=== PATIENT | female | born 1955 | race Caucasian/White ===

== ENCOUNTER 2017-03-04 15:17 | Emergency (ER) | payer OTHER ==
--- NOTE | ~2017-03-04 | CR210 ---
[facility] A Service of [facility] RADIOLOGY TEXT RESULTS PATIENT: WEST SAAVEDRA LOCATION: [place] : 59 UNIT #: [id number] AGE: [address]: Nory Botello SEX: F ORDER DR: [id number] [facility] [address] [place], [place] [address] [id number] E MR#: [id number] Acc #: [id number] NAME: WEST SAAVEDRA : 1955 SEX: F STUDY DATE/TIME: 03/04/2017 16:50 UNIT: CFTX ROOM: STUDY DESCRIPTION: CR Ribs Uni 2 View W PA Ch Lt Attending Physician: Nory Botello P.A.-C. Ordering Physician: Nory Botello P.A.-C. Primary Care Physician: Rhina Esparza M.D. MEDICAL IMAGING REPORT This report is preliminary unless electronic signature is present EXAM Chest and left rib series, 03/04/2017. HISTORY 62-year-old female in the ED complaining of left rib and left hip pain after injury. She was thrown from a horse today. TECHNIQUE AP upright chest x-ray with three-view left rib series. FINDINGS No acute rib fracture is visible. Shallow lung expansion. No visible pneumothorax, pulmonary infiltrate, or pleural effusion. Mild cardiomegaly. IMPRESSION 1. No visible left rib fracture. 2. No active disease in the chest. No visible pneumothorax or pleural effusion. 3. Cardiomegaly. Shallow lung expansion. Dictated by... Roberto Carlos Martínez M.D. THIS IS AN ELECTRONICALLY VERIFIED REPORT Roberto Carlos Martínez M.D. at 03/06/2017 8:50 AM RGW/tmw TD: 03/05/2017 10:25 JOB #: [id number] [facility] A Service of [facility] RADIOLOGY TEXT RESULTS PATIENT: WEST SAAVEDRA LOCATION: CFTX : 59 UNIT #: [id number] AGE: [address]: Nory Botello SEX: F ORDER DR: MEDICAL IMAGING REPORT Page 1 of 1 COPY
--- NOTE | ~2017-03-04 | CR150 ---
[facility] A Service of [facility] & [facility] RADIOLOGY TEXT RESULTS PATIENT: WEST SAAVEDRA LOCATION: CFTX : 59 UNIT #: [id number] AGE: [address]: Nory Botello SEX: F ORDER DR: [id number] [facility] [address] [place], [place] [address] [id number] E MR#: [id number] Acc #: [id number] NAME: WEST SAAVEDRA. : 1955 SEX: F STUDY DATE/TIME: 03/04/2017 16:50 UNIT: [facility] ROOM: STUDY DESCRIPTION: CR Hip Min 2 Views Lt Attending Physician: Nory Botello P.A.-C. Ordering Physician: Nory Botello P.A.-C. Primary Care Physician: Rhnia Esparza M.D. MEDICAL IMAGING REPORT This report is preliminary unless electronic signature is present EXAM Left hip, 03/04/2017 HISTORY 62-year-old female in the ED with left hip pain after being thrown from a horse earlier today. TECHNIQUE Two-view left hip series. FINDINGS The examination is somewhat limited by suboptimal radiographic exposure. The examination is grossly negative for fracture, dislocation or other osseous abnormality. IMPRESSION Negative left hip series, limited as noted above. Dictated by... Roberto Carlos Martínez M.D. THIS IS AN ELECTRONICALLY VERIFIED REPORT Roberto Carlos Martínez M.D. at 03/06/2017 8:50 AM Major TD: 03/05/2017 10:29 JOB #: [id number] MEDICAL IMAGING REPORT Page 1 of 1 COPY
[~2017-03-04 15:17] MED LIST: ASPIRIN81 M1 PO; CELEXA20 MG PO; HCTZ PO; LISINOPRIL PO; LORTAB 10-5001 EACH PO; MULTI-VITAMIN1 TAB PO; NAPROSYN500 MG PO; ZOCOR20 MG PO
== END 2017-03-04 18:17 | disposition home or self-care (01) ==
LOC: CED 15:17 → CFTX 15:17
DX: S20.212A Contusion of left front wall of thorax, initial encounter (principal); I10 Essential (primary) hypertension; F32.9 Major depressive disorder, single episode, unspecified; W18.00XA Striking against unspecified object with subsequent fall, initial encounter; Y92.009 Unspecified place in unspecified non-institutional (private) residence as the place of occurrence of the external cause
CPT/HCPCS: 71101; 73502; 99283